=== PATIENT | male | born 1990 | race Caucasian/White ===

== ENCOUNTER 2018-12-27 17:43 | Emergency (ER) | payer BC ==
[2018-12-27 17:58] VITALS: BP 131/87; PULSE 83; TEMP 98.6; BMI 31.5
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
--- NOTE | 2018-12-27 18:33 | PDOC ---
*Physical Exam - Vital Signs Last Vital Signs Temp Pulse Resp BP Pulse Ox 98.6 F 83 17 131/87 99 12/27/18 17:55 12/27/18 17:55 12/27/18 17:55 12/27/18 17:55 12/27/18 17:55 Heart Score/ECG Review - ECG Intrepretation Comment:: 12/27/18 18:32 Twelve-lead EKG was performed and reviewed by me. There is normal sinus rhythm with a normal rate. The axis is normal. The intervals are normal. There are no ST or T wave abnormalities. Impression: Normal twelve-lead EKG *DC/Admit/Observation/Transfer Diagnosis at time of Disposition: Chest pain Qualifiers: Chest pain type: other chest pain Qualified Code(s): R07.89 - Other chest pain - Discharge Dispostion Disposition: HOME Condition at time of disposition: Improved - Referrals - Patient Instructions Additional Instructions: The ekg and exam was normal today Please follow up with your PMD as needed - Post Discharge Activity Forms/Work/School Notes: Back to Work
--- NOTE | 2018-12-28 15:01 | EKG ---
Test Reason : Blood Pressure : / mmHG Vent. Rate : 079 BPM Atrial Rate : 079 BPM P-R Int : 172 ms QRS Dur : 094 ms QT Int : 366 ms P-R-T Axes : 037 008 041 degrees QTc Int : 419 ms NORMAL SINUS RHYTHM NORMAL ECG NO PREVIOUS ECGS AVAILABLE Confirmed by KAMRAN MOLINA, JOSEP ([id number]) on 12/28/2018 3:00:53 PM Referred By: Confirmed By:JOSEP ANDREW MD
== END 2018-12-27 18:34 | disposition home or self-care (01) ==
LOC: JER 17:43
DX: R07.89 Other chest pain (principal); F17.210 Nicotine dependence, cigarettes, uncomplicated
CPT/HCPCS: 93005; 93010; 99281-25